=== PATIENT | male | born 1960 | race Two or more races ===

== ENCOUNTER 2018-07-25 11:53 | Emergency (ER) | payer OTHER ==
[2018-07-25] MEDS ORDERED: Ondansetron 4 MG/2 ML SDV IVPUSH ONE (11:57)
[2018-07-25] MEDS ORDERED: Morphine 4 MG/ML Syringe IVPUSH ONE (11:57)
--- NOTE | 2018-07-25 12:08 | EDM.PDOC ---
ED HPI GENERAL MEDICAL PROBLEM - General Chief Complaint: Lower Extremity Injury/Pain Stated Complaint: WORKERS COMP INJURY Time Seen by Provider: 07/25/18 12:02 Source of Information: Reports: Patient, Family History Limitations: Reports: Language Barrier - History of Present Illness INITIAL COMMENTS - FREE TEXT/NARRATIVE: HISTORY AND PHYSICAL: History of present illness: Patient is a 58-year-old male who presents to the ED today via private vehicle with concern for direct trauma to his leg after piping from work and landed/ fell on top of his legs. Patient denies trauma to his head or anything above his legs. Patient denies loss of consciousness. Patient was brought in by his coworkers today. Patient states the piping is quite heavy, but is uncertain of exact weight. Patient denies prior injury to his legs. Patient states he does have full sensation of both legs and can move them but has 10/10 pain doing so. Patient denies fever, chills, chest pain, shortness of breath, or cough. Denies headache, neck stiff ness, change in vision, syncope, or near syncope. Denies nausea, vomiting, abdominal pain, diarrhea, constipation, or dysuria. Has not noted any blood in urine or stool. Patient has been eating and drinking appropriately. Review of systems: As per history of present illness and below otherwise all systems reviewed and negative. Past medical history: As per history of present illness and as reviewed below otherwise noncontributory. Surgical history: As per history of present illness and as reviewed below otherwise noncontributory. Social history: See social history for further information Family history: As per history of present illness and as reviewed below otherwise noncontributory. Physical exam: General: Patient is alert, oriented, and in no acute distress. Patient laying comfortably on exam table. HEENT: Atraumatic, normocephalic, pupils equal and reactive bilaterally, negative for conjunctival pallor or scleral icterus, mucous membranes moist, TMs normal bilaterally, throat clear, neck supple, nontender, trachea midline. No drooling or trismus noted. No meningeal signs. No hot potato voice noted. Lungs: Clear to auscultation, breath sounds equal bilaterally, chest nontender. Heart: S1S2, regular rate and rhythm without overt murmur Abdomen: Soft, nondistended, nontender. Negative for masses or hepatosplenomegaly. Negative for costovertebral tenderness. Pelvis: Stable nontender. Genitourinary: Deferred. Rectal: Deferred. Skin: Intact, warm, dry. No lesions or rashes noted. Extremities: Negative for cords or calf pain. Neurovascular unremarkable. There is a 2 cm area of injury/erythema with underlying edema of the right mid tibia. There is another 2 cm area of injury on the left medial knee with underlying edema. Dorsalis pedis and posterior tibial pulses are grossly intact bilaterally. Capillary refill less than 2 seconds. Neuro: Awake, alert, oriented. Cranial nerves II through XII unremarkable. Cerebellum unremarkable. Motor and sensory unremarkable throughout. Exam nonfocal. Notes: Trauma alert was called upon arrival to the ED. Dr. Carrizales was directly involved in patients care. Patient is primarily speaking. Help Desk Coordinator was offered the patient but he declined at this time and will use present for translation. We do not have an orthopedic provider on-call today. 13:00: Called [facility]. Dr. Cohen and Dr. Figueroa are accepting patient for transfer. Arranging ground transfer at this time. Will continue to monitor. Transferred to [place] via ground EMS. Diagnostics: bilateral complete extremity XR Therapeutics: Morphine, Zofran Impression: Midshaft tibia fracture, right leg Plan: 1. Transfer to [facility] via ground EMS to Dr. Cohen (ER) and Dr. Figueroa (orthopedics) Definitive disposition and diagnosis as appropriate pending reevaluation and review of above. bilateral legs Pain Score (Numeric/FACES): 9 - Related Data Allergies Allergy/AdvReac Type Severity Reaction Status Date / Time No Known Allergies Allergy Verified 07/25/18 12:04 Home Meds: Home Meds . [No Known Home Meds] 07/25/18 [History] Review of Systems - Review of Systems Review Of Systems: ROS reveals no pertinent complaints other than HPI. ED EXAM, GENERAL - Physical Exam Exam: See Below (See dictation) Course - Vital Signs Last Recorded V/S: Last Vital Signs Temp 36.8 C 07/25/18 11:53 Pulse 53 L 07/25/18 11:53 Resp 20 07/25/18 11:53 BP 137/71 07/25/18 11:53 Pulse Ox 96 07/25/18 11:53 - Orders/Labs/Meds Orders: Active Orders 24 hr Category Date Time Status Knee 1V or 2V Bi [CR] Stat Exams 07/25/18 11:59 Ordered Meds: Medications Discontinued Medications Generic Name Dose Route Start Last Admin Trade Name Briseyda PRN Reason Stop Dose Admin Morphine Sulfate 4 mg 07/25/18 11:57 07/25/18 12:50 Morphine IVPUSH 07/25/18 11:58 4 mg ONETIME ONE Administration Ondansetron HCl 4 mg 07/25/18 11:57 07/25/18 12:50 Zofran IVPUSH 07/25/18 11:58 4 mg ONETIME ONE Administration Departure - Departure Time of Disposition: 15:56 Disposition: DC/Tfer to [facility] 02 Clinical Impression: Tibia fracture Qualifiers: Encounter type: initial encounter Tibia location: shaft Fracture type: closed Fracture morphology: transverse Fracture alignment: nondisplaced Laterality: right Qualified Code(s): S82.224A - Nondisplaced transverse fracture of shaft of right tibia, initial encounter for closed fracture - Discharge Information Referrals: PCP,Unknown [Primary Care Provider] - Forms: ED Department Discharge - My Orders Last 24 Hours: My Active Orders 07/25/18 11:59 Knee 1V or 2V Bi [CR] Stat - Assessment/Plan Last 24 Hours: My Active Orders 07/25/18 11:59 Knee 1V or 2V Bi [CR] Stat
--- NOTE | 2018-07-25 13:13 | CR ---
INDICATION: Trauma. TECHNIQUE: Two views of each foot. FINDINGS: No acute fracture or dislocation. No erosion or radiodense foreign body. IMPRESSION : Both feet are negative. Dictated by Angelito Stein MD @ Jul 25 2018 1:09PM Signed by Dr. Angelito Stein @ Jul 25 2018 1:12PM
--- NOTE | 2018-07-25 13:16 | CR ---
INDICATION: Trauma. TECHNIQUE: AP and lateral views of each femur. FINDINGS: Both femurs are negative for fracture or dislocation. No erosion or intrinsic skeletal lesion. The hip joints and knee joints are symmetric and intact. IMPRESSION : Both femurs are negative. Dictated by Angelito Stein MD @ Jul 25 2018 1:12PM Signed by Dr. Angelito Stein @ Jul 25 2018 1:15PM
--- NOTE | 2018-07-25 13:22 | CR ---
INDICATION: Trauma. Pain. TECHNIQUE: Two views of each tibia and fibula. FINDINGS: Transversely oriented nondisplaced fracture middle 3rd right tibia with soft tissue swelling. Normal-appearing right fibula. The left tibia and fibula are negative. IMPRESSION: Transversely oriented nondisplaced fracture middle 3rd right tibia with soft tissue swelling. Dictated by Angelito Stein MD @ Jul 25 2018 1:17PM Signed by Dr. Angelito Stein @ Jul 25 2018 1:19PM
== END 2018-07-25 14:07 ==
LOC: MW.ED 11:53
DX: S82.224A Nondisplaced transverse fracture of shaft of right tibia, initial encounter for closed fracture (principal); W20.8XXA Other cause of strike by thrown, projected or falling object, initial encounter
CPT/HCPCS: 73552; 73590; 73620; 96374; 96375; 99284; J2270; J2405